=== PATIENT | male | born 1965 | race Caucasian/White ===

== ENCOUNTER 2018-07-14 00:57 | Emergency (ER) | payer SELFPAY ==
--- NOTE | 2018-07-14 01:00 | EDM.PDOC ---
ED HPI GENERAL MEDICAL PROBLEM - General Stated Complaint: PERSISTENT COUGH Time Seen by Provider: 07/14/18 00:59 Source of Information: Reports: Patient - History of Present Illness INITIAL COMMENTS - FREE TEXT/NARRATIVE: HISTORY AND PHYSICAL: History of present illness: [Patient presents with persistent cough for 2 weeks sometimes productive of white phlegm no fever nausea vomiting chills sweats no chest pain shortness breath headache dizziness palpitation no bowel or bowel or urine symptoms Patient is noncompliant diabetic refuses to take medication or treatment of glucose ] Review of systems: As per history of present illness and below otherwise all systems reviewed and negative. Past medical history: As per history of present illness and as reviewed below otherwise noncontributory. Surgical history: As per history of present illness and as reviewed below otherwise noncontributory. Social history: No reported history of drug or alcohol abuse. Family history: As per history of present illness and as reviewed below otherwise noncontributory. Physical exam: HEENT: Atraumatic, normocephalic, pupils reactive, negative for conjunctival pallor or scleral icterus, mucous membranes moist, throat clear, neck supple, nontender, trachea midline. Lungs: Clear to auscultation, breath sounds equal bilaterally, chest nontender. Heart: S1S2, regular, negative for clicks, rubs, or JVD. Abdomen: Soft, nondistended, nontender. Negative for masses or hepatosplenomegaly. Negative for costovertebral tenderness. Pelvis: Stable nontender. Genitourinary: Deferred. Rectal: Deferred. Extremities: Atraumatic, negative for cords or calf pain. Neurovascular unremarkable. Neuro: Awake, alert, oriented. Cranial nerves II through XII unremarkable. Cerebellum unremarkable. Motor and sensory unremarkable throughout. Exam nonfocal. Diagnostics: [Chest 2 views ]Patient refused lab Therapeutics: [DuoNeb ]Levaquin 500 mg by mouth daily #10 no refill Recommend follow-up and establish primary care for treatment of diabetes Impression: [cough ]Right infiltrate on chest x-ray will follow radiology interpretation Definitive disposition and diagnosis as appropriate pending reevaluation and review of above. - Related Data Allergies Allergy/AdvReac Type Severity Reaction Status Date / Time No Known Allergies Allergy Verified 07/14/18 01:07 Home Meds: Home Meds . [No Known Home Meds] 07/14/18 [History] ED ROS GENERAL - Review of Systems Review Of Systems: See Below ED EXAM, GENERAL - Physical Exam Exam: See Below Course - Vital Signs Last Recorded V/S: Last Vital Signs Temp 96.6 F 07/14/18 01:06 Pulse 93 07/14/18 01:06 Resp 22 H 07/14/18 01:06 BP 132/81 07/14/18 01:06 Pulse Ox 94 L 07/14/18 01:06 - Orders/Labs/Meds Orders: Active Orders 24 hr Category Date Time Status RT Aerosol Therapy [RC] ASDIRECTED Care 07/14/18 01:50 Active Chest 2V [CR] Stat Exams 07/14/18 00:59 Taken Meds: Medications Discontinued Medications Generic Name Dose Route Start Last Admin Trade Name Dagoberto PRN Reason Stop Dose Admin Albuterol/Ipratropium 3 ml 07/14/18 01:50 Duoneb 3.0-0.5 Mg/3 Ml NEB 07/14/18 01:51 ONETIME ONE Levofloxacin 500 mg 07/14/18 01:50 Levaquin PO 07/14/18 01:51 ONETIME ONE Departure - Departure Time of Disposition: 01:52 Disposition: Home, Self-Care 01 Condition: Good Clinical Impression: Pulmonary infiltrate on chest x-ray, Persistent cough - Discharge Information Referrals: PCP,None [Primary Care Provider] - Additional Instructions: Medication as prescribed Return if symptoms persist or worsen Recommend follow-up with primary care within 2 weeks for treatment of diabetes and recheck of current symptoms [facility] [address] [place] [address] The following information is given to patients seen in the emergency department who are being discharged to home. This information is to outline your options for follow-up care. We provide all patients seen in our emergency department with a follow-up referral. The need for follow-up, as well as the timing and circumstances, are variable depending upon the specifics of your emergency department visit. If you don't have a primary care physician on staff, we will provide you with a referral. We always advise you to contact your personal physician following an emergency department visit to inform them of the circumstance of the visit and for follow-up with them and/or the need for any referrals to a consulting specialist. The emergency department will also refer you to a specialist when appropriate. This referral assures that you have the opportunity for follow-up care with a specialist. All of these measure are taken in an effort to provide you with optimal care, which includes your follow-up. Under all circumstances we always encourage you to contact your private physician who remains a resource for coordinating your care. When calling for follow-up care, please make the office aware that this follow-up is from your recent emergency room visit. If for any reason you are refused follow-up, please contact the [facility] emergency department at and asked to speak to the emergency department charge nurse. - My Orders Last 24 Hours: My Active Orders 07/14/18 00:59 Chest 2V [CR] Stat 07/14/18 01:50 RT Aerosol Therapy [RC] ASDIRECTED - Assessment/Plan Last 24 Hours: My Active Orders 07/14/18 00:59 Chest 2V [CR] Stat 07/14/18 01:50 RT Aerosol Therapy [RC] ASDIRECTED
[2018-07-14] MEDS ORDERED: Levofloxacin 500 MG Tab PO ONE (01:50)
[2018-07-14] MEDS ORDERED: Albuterol/Ipratropium 3.0-0.5 MG/3 ML Neb Soln NEB ONE (01:50)
--- NOTE | 2018-07-14 01:57 | CR ---
INDICATION: Pt w/cough x 2 wks. TECHNIQUE: Chest 2 views. COMPARISON: None. FINDINGS: Cardiovascular and mediastinum: Heart size and vasculature are normal in caliber and appearance. Mediastinum is within normal limits. Lungs and pleural spaces: Lungs are clear. No sign of infiltrate or mass. No sign of pleural effusion. No pneumothorax. Bones and soft tissues: No significant findings. IMPRESSION: Unremarkable chest. Dictated by: Lawrence Banerjee MD @ 07/14/2018 01:55:37 (Electronically Signed)
== END 2018-07-14 02:35 | disposition home or self-care (01) ==
LOC: MW.ED 00:57
DX: R05 Cough (principal); R91.8 Other nonspecific abnormal finding of lung field
CPT/HCPCS: 71046; 94640; 99283; A9270; J7620-GY

== ENCOUNTER 2018-11-12 02:14 | Emergency (ER) | payer SELFPAY | END 2018-11-12 02:25 | disposition left against medical advice (07) | LOC: MW.ED 02:14 | DX: Z53.21 Procedure and treatment not carried out due to patient leaving prior to being seen by health care provider (principal) | CPT/HCPCS: 99282 ==

== ENCOUNTER 2018-11-12 03:31 | Emergency (ER) | payer SELFPAY | END 2018-11-12 03:44 | disposition home or self-care (01) | LOC: MW.ED 03:31 | DX: Z53.21 Procedure and treatment not carried out due to patient leaving prior to being seen by health care provider (principal) | CPT/HCPCS: 82962; 99283 ==

== ENCOUNTER 2018-12-05 00:19 | Emergency (ER) | payer SELFPAY ==
--- NOTE | 2018-12-05 00:45 | EDM.PDOC ---
ED HPI GENERAL MEDICAL PROBLEM - General Chief Complaint: General Stated Complaint: PT WOULD LIKE TO GET HIS BP CHECK Time Seen by Provider: 12/05/18 00:38 - History of Present Illness INITIAL COMMENTS - FREE TEXT/NARRATIVE: HISTORY AND PHYSICAL: History of present illness: The patient is a 52-year-old male who presents because he like to get his blood pressure checked and he is concerned about his blood sugar as he has diabetes and is not taking any medication. The patient is well known to our staff as someone who comes in frequently just to get checked out due to random concerns and he is usually dropped off by his girlfriend and has been drinking alcohol. Today on my evaluation the patient again has no complaints more specifically no chest pain no shortness of breath no abdominal pain nausea or vomiting, but he tells me because his birthday is in 4 days and he is concerned about his health care but he has not followed up with anybody in the clinic. He says he is eating and drinking normally and has no history of any trauma and has no other complaints Review of systems: As per history of present illness and below otherwise all systems reviewed and negative. Past medical history: As per history of present illness and as reviewed below otherwise noncontributory. Surgical history: As per history of present illness and as reviewed below otherwise noncontributory. Social history: No reported history of drug or alcohol abuse. Family history: As per history of present illness and as reviewed below otherwise noncontributory. Physical exam: General: Well-developed well-nourished man who is nontoxic and vital signs are noted by me HEENT: Atraumatic, normocephalic, pupils reactive, negative for conjunctival pallor or scleral icterus, mucous membranes moist, throat clear, neck supple, nontender, trachea midline. Lungs: Clear to auscultation, breath sounds equal bilaterally, chest nontender. Heart: S1S2, regular ate and rhythm no overt murmurs Abdomen: Soft, nondistended, nontender. NABS Pelvis: Deferred Genitourinary: Deferred. Rectal: Deferred. Extremities: Atraumatic, negative for cords or calf pain. Neurovascular unremarkable. Neuro: Awake, alert, oriented. Cranial nerves II through XII unremarkable. Cerebellum unremarkable. Motor and sensory unremarkable throughout. Exam nonfocal. Diagnostics: Accu-Chek Therapeutics: [] Impression: Interval medical screening exam Definitive disposition and diagnosis as appropriate pending reevaluation and review of above. - Related Data Allergies Allergy/AdvReac Type Severity Reaction Status Date / Time No Known Allergies Allergy Verified 07/14/18 01:07 Home Meds: Home Meds . [No Known Home Meds] 07/14/18 [History] Past Medical History HEENT History: Reports: Impaired Vision, Other (See Below) Other HEENT History: wears glasses Endocrine/Metabolic History: Reports: Diabetes, Type II - Past Surgical History HEENT Surgical History: Reports: None Social & Family History - Family History Family Medical History: Noncontributory - Caffeine Use Caffeine Use: Reports: Coffee ED ROS GENERAL - Review of Systems Review Of Systems: ROS reveals no pertinent complaints other than HPI. ED EXAM, GENERAL - Physical Exam Exam: See Below (See dictation) Course - Orders/Labs/Meds Orders: Active Orders 24 hr Category Date Time Status Blood Glucose Check, Bedside [RC] ONETIME Care 12/05/18 00:38 Active Labs: Laboratory Tests 12/05/18 Range/Units 00:33 POC Glucose 231 H (60-110) mg/dL Departure - Departure Time of Disposition: 00:44 Disposition: Home, Self-Care 01 Condition: Good Clinical Impression: Encounter for medical screening examination - Discharge Information Referrals: PCP,None [Primary Care Provider] - Additional Instructions: The following information is given to patients seen in the emergency department who are being discharged to home. This information is to outline your options for follow-up care. We provide all patients seen in our emergency department with a follow-up referral. The need for follow-up, as well as the timing and circumstances, are variable depending upon the specifics of your emergency department visit. If you don't have a primary care physician on staff, we will provide you with a referral. We always advise you to contact your personal physician following an emergency department visit to inform them of the circumstance of the visit and for follow-up with them and/or the need for any referrals to a consulting specialist. The emergency department will also refer you to a specialist when appropriate. This referral assures that you have the opportunity for followup care with a specialist. All of these measure are taken in an effort to provide you with optimal care, which includes your followup. Under all circumstances we always encourage you to contact your private physician who remains a resource for coordinating your care. When calling for followup care, please make the office aware that this follow-up is from your recent emergency room visit. If for any reason you are refused follow-up, please contact the [facility] emergency department at and ask to speak to the emergency department charge nurse. [facility] Primary care- Internal Medicine and Family [address] [address] Avoid alcohol and push hydration and try to start watching her diet for added sodium as this will drive your blood pressure higher. Also avoid concentrated sweets and to call and schedule a follow-up appointment in the clinic for further care and evaluation of your chronic medical problems. Return to ER as needed and as discussed - My Orders Last 24 Hours: My Active Orders 12/05/18 00:38 Blood Glucose Check, Bedside [RC] ONETIME - Assessment/Plan Last 24 Hours: My Active Orders 12/05/18 00:38 Blood Glucose Check, Bedside [RC] ONETIME
== END 2018-12-05 00:55 | disposition home or self-care (01) ==
LOC: MW.ED 00:19
DX: Z13.9 Encounter for screening, unspecified (principal); E11.9 Type 2 diabetes mellitus without complications
CPT/HCPCS: 82962; 99281; 99283

== ENCOUNTER 2019-12-09 00:17 | Emergency (ER) | payer SELFPAY ==
[2019-12-09] MEDS ORDERED: Octyl 2-Cyanoacrylate 1 Tube TOP ONE (00:54)
[2019-12-09] MEDS ORDERED: Diphtheria,Pertussis(Acell),Tetanus Vaccine 0.5 ML Syringe IM ONE ×2 (00:55→01:02)
--- NOTE | 2019-12-09 00:57 | EDM.PDOC ---
ED HPI GENERAL MEDICAL PROBLEM - General Chief Complaint: Laceration Stated Complaint: CUT ON FOREHEAD Time Seen by Provider: 12/09/19 00:54 Source of Information: Reports: Patient History Limitations: Reports: Intoxication - History of Present Illness INITIAL COMMENTS - FREE TEXT/NARRATIVE: History of present illness: [Patient is a 54-year-old male who presents with a laceration to his forehead. 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 He states that some of the guests were there at this wedding medical receptionist biller help stop the bleeding and put a Band-Aid on there. Does not recall when his last tetanus shot was. Denies any loss of consciousness, no other trauma or injury reported, does admit to drinking alcohol and being a little bit tipsy at the wedding medical receptionist biller.] Review of systems: As per history of present illness and below otherwise all systems reviewed and negative. Past medical history: As per history of present illness and as reviewed below otherwise noncontributory. Surgical history: As per history of present illness and as reviewed below otherwise noncontributory. Social history: No reported history of drug or alcohol abuse. Family history: As per history of present illness and as reviewed below otherwise noncontributory. Physical exam: General: Awake, alert, no acute distress, A&O X3. HEENT: normocephalic, pupils reactive, negative for conjunctival pallor or scleral icterus, mucous membranes moist, throat clear, neck supple, nontender, trachea midline. 1 cm relatively shallow/superficial laceration to the forehead, in between the eyes, horizontal. Lungs: Clear to auscultation, breath sounds equal bilaterally, chest nontender. Heart: RRR, normal S1S2, no JVD. Abdomen: Soft, nondistended, nontender. Negative for masses or hepatosplenomegaly. Negative for costovertebral tenderness. Pelvis: Stable nontender. Genitourinary: Deferred. Rectal: Deferred. Extremities: Atraumatic, no edema, Neurovascular unremarkable. Neuro: Motor and sensory grossly intact throughout. Exam nonfocal. Diagnostics: [] Therapeutics: [] Impression: [] Plan: [] Definitive disposition and diagnosis as appropriate pending reevaluation and review of above. - Related Data Allergies Allergy/AdvReac Type Severity Reaction Status Date / Time No Known Allergies Allergy Verified 12/09/19 00:34 Home Meds: Home Meds . [No Known Home Meds] 07/14/18 [History] Past Medical History HEENT History: Reports: Impaired Vision, Other (See Below) Other HEENT History: wears glasses Cardiovascular History: Reports: Hypertension Endocrine/Metabolic History: Reports: Diabetes, Type II - Infectious Disease History Infectious Disease History: Reports: Chicken Pox - Past Surgical History HEENT Surgical History: Reports: None Social & Family History - Family History Family Medical History: Noncontributory - Caffeine Use Caffeine Use: Reports: None - Recreational Drug Use Recreational Drug Use: No ED ROS GENERAL - Review of Systems Review Of Systems: Comprehensive ROS is negative, except as noted in HPI. ED EXAM, SKIN/RASH Exam: See Below (see h and p) ED SKIN PROCEDURES - Laceration/Wound Repair Forehead Appearance: Superficial Skin Prep: Saline Exploration/Debridement/Repair: Wound Explored, No Foreign Material Found Closed with: Dermabond Lac/Wound length In cm: 1 Tetanus Status Addressed: Yes Complications: No Course - Vital Signs Text/Narrative:: Superficial laceration repaired with Dermabond. Tetanus updated. Patient otherwise nontoxic and agreeable with plan for discharge home and follow-up in the outpatient setting with return precautions provided. Last Recorded V/S: Last Vital Signs Temp 36.1 C 12/09/19 00:34 Pulse 94 12/09/19 00:34 Resp 18 12/09/19 00:34 BP 149/100 H 12/09/19 00:34 Pulse Ox 95 12/09/19 00:34 - Orders/Labs/Meds Orders: Active Orders 24 hr Category Date Time Status Vaccines to be Administered [RC] PER UNIT ROUTINE Care 12/09/19 00:55 Active Labs: Laboratory Tests 12/09/19 Range/Units 00:42 POC Glucose 297 H (60-110) mg/dL Meds: Medications Discontinued Medications Generic Name Dose Route Start Last Admin Trade Name Freq PRN Reason Stop Dose Admin Diphtheria/Tetanus/Acell Pertussis 0.5 ml 12/09/19 00:55 Boostrix IM 12/09/19 00:56 .ONCE ONE Octyl Cyanoacrylate 1 applic 12/09/19 00:54 Dermabond Advance TOP 12/09/19 00:55 ONETIME ONE Departure - Departure Time of Disposition: 01:01 Disposition: Home, Self-Care 01 Condition: Good Clinical Impression: Laceration of forehead - Discharge Information Instructions: Sutures, [place], or Adhesive Wound Closure Referrals: PCP,None [Primary Care Provider] - Forms: ED Department Discharge Additional Instructions: Follow-up with primary care doctor. Return to the ER with any new or worsening symptoms. The following information is given to patients seen in the emergency department who are being discharged to home. This information is to outline your options for follow-up care. We provide all patients seen in our emergency department with a follow-up referral. The need for follow-up, as well as the timing and circumstances, are variable depending upon the specifics of your emergency department visit. If you don't have a primary care physician on staff, we will provide you with a referral. We always advise you to contact your personal physician following an emergency department visit to inform them of the circumstance of the visit and for follow-up with them and/or the need for any referrals to a consulting specialist. The emergency department will also refer you to a specialist when appropriate. This referral assures that you have the opportunity for follow-up care with a specialist. All of these measure are taken in an effort to provide you with optimal care, which includes your follow-up. Under all circumstances we always encourage you to contact your private physician who remains a resource for coordinating your care. When calling for follow-up care, please make the office aware that this follow-up is from your recent emergency room visit. If for any reason you are refused follow-up, please contact the [facility] Emergency Department at and asked to speak to the emergency department charge nurse. Sepsis Event Note (ED) - Evaluation Sepsis Screening Result: No Definite Risk - Focused Exam Vital Signs: Vital Signs Temp Pulse Resp BP Pulse Ox 12/09/19 00:34 36.1 C 94 18 149/100 H 95 - My Orders Last 24 Hours: My Active Orders 12/09/19 00:55 Vaccines to be Administered [RC] PER UNIT ROUTINE - Assessment/Plan Last 24 Hours: My Active Orders 12/09/19 00:55 Vaccines to be Administered [RC] PER UNIT ROUTINE
== END 2019-12-09 01:12 | disposition home or self-care (01) ==
LOC: MW.ED 00:17
DX: S01.81XA Laceration without foreign body of other part of head, initial encounter (principal); I10 Essential (primary) hypertension; E11.9 Type 2 diabetes mellitus without complications; Z23 Encounter for immunization; W26.0XXA Contact with knife, initial encounter
CPT/HCPCS: 12011; 82962; 90471; 90715; 99283; A9270; 99282